=== PATIENT | male | born 1950 | race Caucasian/White ===

== ENCOUNTER 2023-12-19 11:39 | Observation (INO) | payer OTHER ==
[~2023-12-19] VITALS: Ht 180.3 cm; Wt 87.5 kg
[2023-12-19 12:16] LABS: BASOPHILS # (AUTO) 0.09 K/uL (0.00-0.20); BASOPHILS % (AUTO) 1.8 % (0.0-5.0); EOSINOPHILS # (AUTO) 0.09 K/uL (0.00-0.70); EOSINOPHILS % (AUTO) 1.8 % (0.0-8.0); HEMATOCRIT 46.6 % (42-54); IMMATURE GRANULOCYTE ABSOLUTE 0.02 K/uL (0-1); LYMPHOCYTES # (AUTO) 1.9 K/uL (1.0-4.8); MEAN CORPUSCULAR HEMOGLOBIN 34.4 pg (27.0-33.0); MEAN CORPUSCULAR HGB CONC 34.3 g/dL (32.0-36.0); MEAN CORPUSCULAR VOLUME 100.2 fL (79-99); MONOCYTES # (AUTO) 0.5 K/uL (0.1-1.0); MONOCYTES % (AUTO) 10.4 % (3.0-13.0); NEUTROPHILS # (AUTO) 2.4 K/uL (1.8-7.7); NEUTROPHILS % (AUTO) 47.6 % (40.0-77.0); PLATELET COUNT (AUTO) 173 K/uL (130-400); RED BLOOD CELL COUNT(AUTO) 4.65 MIL/uL (4.50-6.20); RED CELL DISTRIBUTION WIDTH 12.2 % (11.0-15.5); WHITE BLOOD COUNT (AUTO) 5.1 K/uL (4.8-10.8)
[2023-12-19 12:24] LABS: CREATININE 1.2 mg/dL (0.5-1.3); INR 1.22 (0.85-1.15)
[2023-12-19 12:25] LABS: PARTIAL THROMBOPLASTIN TIME 36.7 SEC (26.3-35.5)
[2023-12-19] MEDS ORDERED: acetaMINOPHEN 500 MG TABLET PO PRN (14:00)
[2023-12-19] MEDS ORDERED: ONDANSETRON 4MG INJ IVP PRN (14:00)
[2023-12-19 14:58] LABS: HEMOGLOBIN A1C 5.3 % (4.0-6.0)
[2023-12-19 15:11] LABS: ALBUMIN 3.9 g/dL (3.5-5.0); BILIRUBIN,DIRECT 0.1 mg/dL (0.0-0.3); BILIRUBIN,TOTAL 0.5 mg/dL (0.2-1.0); THYROID STIMULATING HORMONE 1.85 uIU/mL (0.36-3.74)
[2023-12-19] MEDS: 0.9%NACL 1000ML 1,000 ML IV SCH (16:13)
[2023-12-19 16:30] LABS: APPEARANCE,URINE CLEAR (CLEAR); BILIRUBIN,URINE NEGATIVE (NEGATIVE); COLOR,URINE LIGHT-YELLOW (YELLOW); GLUCOSE, URINE (UA) NEGATIVE (NEGATIVE); KETONES,URINE NEGATIVE (NEGATIVE); LEUKOCYTE ESTERASE ,URINE NEGATIVE Leu/uL (NEGATIVE); NITRATE,URINE NEGATIVE (NEGATIVE); OCCULT BLOOD,URINE NEGATIVE (NEGATIVE); PH,URINE 6.5 (5.0-8.0); PROTEIN,URINE NEGATIVE (NEGATIVE); UROBILINOGEN,URINE 0.2 mg/dL (0.2-1.0)
[2023-12-19 16:31] LABS: ADD UA MICROSCOPIC YES
[2023-12-19 16:32] LABS: MUCUS,URINE RARE LPF (None Seen); RBC,URINE 0-1 /HPF (0-1); WBC,URINE 0-1 /HPF (0-1)
[2023-12-19 19:30] VITALS: O2SAT 97
[2023-12-19 20:09] VITALS: BP 154/66; PULSE 97; RESP 20; TEMP 98.5
[2023-12-19] MEDS: FAMOTIDINE 20MG TAB PO SCH (20:25)
[2023-12-19] MEDS: RIVAROXABAN 2.5 MG TABLET PO ONE (20:26)
[2023-12-19 23:25] VITALS: BP 145/65; PULSE 46; RESP 20; TEMP 98.2
[2023-12-20] VITALS (10 sets, daily range): BP systolic 121–166; BP diastolic 70–89; PULSE 42–58; RESP 17–21; TEMP 97.8–98.4; O2SAT 98–99
[2023-12-20 04:28] LABS: BASOPHILS # (AUTO) 0.08 K/uL (0.00-0.20); BASOPHILS % (AUTO) 1.3 % (0.0-5.0); EOSINOPHILS # (AUTO) 0.11 K/uL (0.00-0.70); EOSINOPHILS % (AUTO) 1.8 % (0.0-8.0); HEMATOCRIT 41.6 % (42-54); IMMATURE GRANULOCYTE ABSOLUTE 0.01 K/uL (0-1); LYMPHOCYTES # (AUTO) 2.5 K/uL (1.0-4.8); LYMPHOCYTES % (AUTO) 39.6 % (21.0-51.0); MEAN CORPUSCULAR HEMOGLOBIN 34.7 pg (27.0-33.0); MEAN CORPUSCULAR HGB CONC 34.9 g/dL (32.0-36.0); MEAN CORPUSCULAR VOLUME 99.5 fL (79-99); MONOCYTES # (AUTO) 0.7 K/uL (0.1-1.0); MONOCYTES % (AUTO) 10.7 % (3.0-13.0); NEUTROPHILS # (AUTO) 2.9 K/uL (1.8-7.7); NEUTROPHILS % (AUTO) 46.4 % (40.0-77.0); PLATELET COUNT (AUTO) 152 K/uL (130-400); RED BLOOD CELL COUNT(AUTO) 4.18 MIL/uL (4.50-6.20); RED CELL DISTRIBUTION WIDTH 12.2 % (11.0-15.5); WHITE BLOOD COUNT (AUTO) 6.2 K/uL (4.8-10.8)
[2023-12-20 04:50] LABS: ALBUMIN 3.3 g/dL (3.5-5.0); BILIRUBIN,TOTAL 0.6 mg/dL (0.2-1.0); CREATININE 1.2 mg/dL (0.5-1.3); MAGNESIUM 1.7 mg/dL (1.80-2.40); POTASSIUM 4.4 mmol/L (3.5-5.1); TOTAL PROTEIN, SERUM 5.8 g/dL (6.0-8.3)
[2023-12-20] MEDS: MAGNESIUM 2GM PREMIX 50ML 50 ML IV ONE (06:02)
[2023-12-20] MEDS: AMIOdarone 200 MG TABLET PO SCH (09:20)
[2023-12-20] MEDS ORDERED: MAGNESIUM 2GM PREMIX 50ML 50 ML IV SCH (13:30)
[2023-12-20] MEDS: RIVAROXABAN 20 MG TABLET PO SCH (20:00)
[2023-12-20] MEDS: LoSARTan 50 MG TABLET PO SCH (20:00)
[2023-12-21 03:35] VITALS: BP 143/91; PULSE 45; RESP 20; TEMP 97.7
[2023-12-21 04:11] LABS: HEMATOCRIT 44.1 % (42-54); MEAN CORPUSCULAR HEMOGLOBIN 34.5 pg (27.0-33.0); MEAN CORPUSCULAR HGB CONC 35.1 g/dL (32.0-36.0); MEAN CORPUSCULAR VOLUME 98.2 fL (79-99); RED BLOOD CELL COUNT(AUTO) 4.49 MIL/uL (4.50-6.20); RED CELL DISTRIBUTION WIDTH 12.2 % (11.0-15.5); WHITE BLOOD COUNT (AUTO) 5.9 K/uL (4.8-10.8)
[2023-12-21 04:22] LABS: ALBUMIN 3.4 g/dL (3.5-5.0); BILIRUBIN,TOTAL 0.7 mg/dL (0.2-1.0); CREATININE 1.1 mg/dL (0.5-1.3); MAGNESIUM 2.5 mg/dL (1.80-2.40); POTASSIUM 4.1 mmol/L (3.5-5.1); TOTAL PROTEIN, SERUM 6.2 g/dL (6.0-8.3)
[2023-12-21] MEDS: polyETHYLene GLYCol 3350 17 GM POWD.PACK PO SCH (07:02)
[2023-12-21] MEDS: doCUSate SODIUM 100 MG CAP PO SCH (07:03)
[2023-12-21] MEDS: doCUSate SODIUM 100 MG CAP PO ONE (07:03)
[2023-12-21 07:24] VITALS: BP 161/77; PULSE 51; RESP 20; TEMP 98; O2SAT 98
[2023-12-21] MEDS ORDERED: AMIO200T68 PO (10:46)
[2023-12-21] MEDS ORDERED: RIVA20TA PO (10:46)
[2023-12-21] MEDS ORDERED: OLME20TA68 PO (10:46)
[2023-12-21 11:57] VITALS: BP 136/74; PULSE 97; RESP 20; TEMP 98
[2023-12-21] MEDS ORDERED: LoSARTan 50 MG TABLET PO SCH (21:00)
[2023-12-21] MEDS ORDERED: RIVAROXABAN 20 MG TABLET PO SCH (21:00)
== END 2023-12-21 14:20 | disposition home or self-care (01) ==
LOC: EDH 11:39 → INTOOBSV 13:58 → EDHIP 13:58 → 2DH 18:14
PROVIDERS: ADMIT Internal Medicine; ATTEND Internal Medicine
DX: R00.1 Bradycardia, unspecified (principal); R42 Dizziness and giddiness; R20.0 Anesthesia of skin; I10 Essential (primary) hypertension; I48.0 Paroxysmal atrial fibrillation; I63.9 Cerebral infarction, unspecified; I65.21 Occlusion and stenosis of right carotid artery; I44.0 Atrioventricular block, first degree; G51.0 Bell's palsy; R60.0 Localized edema; Z79.899 Other long term (current) drug therapy; Z79.01 Long term (current) use of anticoagulants; Z90.49 Acquired absence of other specified parts of digestive tract
CPT/HCPCS: 96361 ×3; 99285; 83036; 84443; 82550 ×2; 80076; 83735 ×3; 84484; 80061; 80048; 85025 ×2; 85610; 85730; 84439; 84425; 82607; 84481; 82746; 81001; 36415 ×3; 70450; 93880; 70551; 93005; 96365; 96366; 80053 ×2; 97161; 97116; 85027; J7030; G0378 ×23; J3475; G8980-CH; G8983-CH

== ENCOUNTER → 2024-01-14 | Outpatient (CLI) | payer OTHER ==
[~2024-01-14] MED LIST: AMIO200T68 PO; OLME20TA68 PO; RIVA20TA PO
== END | disposition home or self-care (01) ==
LOC: RAH 12:30
PROVIDERS: ATTEND Internal Medicine Cardiovascular Disease
DX: Z13.6 Encounter for screening for cardiovascular disorders (principal)
CPT/HCPCS: 75571

== ENCOUNTER 2024-02-26 08:35 | Observation (INO) | payer OTHER ==
[~2024-02-26] VITALS: Ht 180.3 cm; Wt 87.5 kg
[2024-02-26 09:08] LABS: BASOPHILS # (AUTO) 0.04 K/uL (0.00-0.20); BASOPHILS % (AUTO) 0.9 % (0.0-5.0); EOSINOPHILS # (AUTO) 0.18 K/uL (0.00-0.70); HEMATOCRIT 44.6 % (42-54); IMMATURE GRANULOCYTE ABSOLUTE 0.02 K/uL (0-1); LYMPHOCYTES # (AUTO) 2.1 K/uL (1.0-4.8); LYMPHOCYTES % (AUTO) 46.5 % (21.0-51.0); MEAN CORPUSCULAR HEMOGLOBIN 35.1 pg (27.0-33.0); MEAN CORPUSCULAR VOLUME 100.5 fL (79-99); MONOCYTES # (AUTO) 0.4 K/uL (0.1-1.0); MONOCYTES % (AUTO) 9.5 % (3.0-13.0); NEUTROPHILS # (AUTO) 1.8 K/uL (1.8-7.7); NEUTROPHILS % (AUTO) 38.7 % (40.0-77.0); PLATELET COUNT (AUTO) 122 K/uL (130-400); RED BLOOD CELL COUNT(AUTO) 4.44 MIL/uL (4.50-6.20); RED CELL DISTRIBUTION WIDTH 11.9 % (11.0-15.5); WHITE BLOOD COUNT (AUTO) 4.5 K/uL (4.8-10.8)
[2024-02-26 09:24] LABS: CREATININE 1.1 mg/dL (0.5-1.3); POTASSIUM 4.2 mmol/L (3.5-5.1)
[2024-02-26 09:41] LABS: B-TYPE NATRIURETIC PEPTIDE 64 pg/mL (0-100)
[2024-02-26] MEDS ORDERED: morPHINE 2 MG SYG IVP PRN (10:30)
[2024-02-26] MEDS ORDERED: acetaMINOPHEN 650 MG SUPPOSITORY RC PRN ×2 (10:30→12:30)
[2024-02-26] MEDS ORDERED: acetaMINOPHEN 325 MG TAB PO PRN ×2 (10:30→12:30)
[2024-02-26] MEDS ORDERED: hydrALAZine 20MG/ML VIAL IV PRN (12:30)
[2024-02-26] MEDS ORDERED: LAbetaLOL 20MG SYG IV PRN (12:30)
[2024-02-26] MEDS ORDERED: ondanSETRON 4MG INJ IVP PRN (12:30)
[2024-02-26] MEDS ORDERED: doCUSate SODIUM 100 MG CAP PO PRN (12:30)
[2024-02-26] MEDS ORDERED: ALBUTEROL 0.083% 2.5 MG/3 ML INH IH PRN (12:30)
[2024-02-26] MEDS ORDERED: cloNIDine HCL 0.1 MG TABLET PO PRN (12:30)
[2024-02-26] MEDS ORDERED: LACTULOSE 20 GM/30 ML UDCUP PO PRN (12:30)
[2024-02-26 12:55] VITALS: PULSE 53; RESP 18; O2SAT 99
[2024-02-26 13:10] VITALS: BP 178/66; PULSE 55; RESP 20; TEMP 97.6; O2SAT 98
[2024-02-26] MEDS ORDERED: ATOR20TA PO (14:00)
[2024-02-26 15:38] VITALS: BP 136/72; PULSE 52; RESP 20; TEMP 97.6
[2024-02-26] MEDS: INSULIN humuLIN R 100 UNIT/ML 3ML SQ SCH (16:30)
[2024-02-26 20:00] VITALS: BP 161/89; PULSE 60; RESP 20; TEMP 97.4; O2SAT 98
[2024-02-26] MEDS ORDERED: simVASTatin 20 MG TABLET PO SCH (20:00)
[2024-02-26] MEDS ORDERED: IOHEXOL-350 75 ML VIAL IV ONE (21:59)
[2024-02-26] MEDS: atorVAStatin 10 MG TABLET PO SCH (22:27)
[2024-02-26] MEDS: RIVAROXABAN 20 MG TABLET PO SCH (22:27)
[2024-02-26] MEDS: FAMOTIDINE 20MG TAB PO SCH (22:27)
[2024-02-26] MEDS ORDERED: LOSA50TA64 PO (22:31)
[2024-02-26 23:43] VITALS: BP 156/92; PULSE 55; RESP 20; TEMP 98
[2024-02-27 04:00] VITALS: BP 153/72; PULSE 50; RESP 16; TEMP 98.3
[2024-02-27 06:07] LABS: HEMATOCRIT 44.1 % (42-54); MEAN CORPUSCULAR HEMOGLOBIN 34.5 pg (27.0-33.0); MEAN CORPUSCULAR HGB CONC 34.5 g/dL (32.0-36.0); RED BLOOD CELL COUNT(AUTO) 4.41 MIL/uL (4.50-6.20); RED CELL DISTRIBUTION WIDTH 11.9 % (11.0-15.5); WHITE BLOOD COUNT (AUTO) 4.5 K/uL (4.8-10.8)
[2024-02-27 06:29] VITALS: PULSE 55; RESP 18; O2SAT 97
[2024-02-27 06:31] LABS: CREATININE 1.1 mg/dL (0.5-1.3); MAGNESIUM 2.1 mg/dL (1.80-2.40); PHOSPHORUS 3.6 mg/dL (2.5-4.9); POTASSIUM 4.6 mmol/L (3.5-5.1)
[2024-02-27 08:00] VITALS: BP 142/77; PULSE 51; RESP 18; TEMP 97.9; O2SAT 96
[2024-02-27] MEDS: AMIOdarone 200 MG TABLET PO SCH (08:50)
[2024-02-27] MEDS: ASPIRIN 81MG CHEW TAB PO SCH (08:50)
[2024-02-27] MEDS ORDERED: OLMESARTAN MEDOXOMIL 20 MG PO SCH (09:00)
[2024-02-27] MEDS ORDERED: ENOXAPARIN SODIUM 40 MG/0.4 ML SYRINGE SQ SCH (09:00)
[2024-02-27 12:00] VITALS: BP 144/73; PULSE 54; RESP 18; TEMP 98.3
[2024-02-27] MEDS ORDERED: LoSARTan 50 MG TABLET PO SCH (20:00)
== END 2024-02-27 15:05 | disposition home or self-care (01) ==
LOC: EDH 08:35 → EDHIP 10:03 → 4DH 13:10
PROVIDERS: ADMIT Internal Medicine Critical Care Medicine; ATTEND Internal Medicine Critical Care Medicine
DX: I25.110 Atherosclerotic heart disease of native coronary artery with unstable angina pectoris (principal); I48.91 Unspecified atrial fibrillation; I10 Essential (primary) hypertension; R07.89 Other chest pain; E78.5 Hyperlipidemia, unspecified; Z79.01 Long term (current) use of anticoagulants; Z79.899 Other long term (current) drug therapy; Z98.890 Other specified postprocedural states
CPT/HCPCS: 99285; 82550 ×3; 84484 ×5; 80048 ×2; 83880; 85025; 85378; 82948 ×4; 36415 ×2; 71045; 71275; 93306; 93356; 93005; 94664; 83735; 84100; 85027; G0378 ×28; Q9967

== ENCOUNTER → 2024-03-04 | Outpatient (CLI) | payer OTHER ==
[~2024-03-04] MED LIST changes: +ATOR20TA PO; +LOSA50TA64 PO; -OLME20TA68 PO
[2024-03-04 16:26] LABS: CREATININE 1.2 mg/dL (0.5-1.3); POTASSIUM 4.8 mmol/L (3.5-5.1)
== END | disposition home or self-care (01) ==
LOC: LAB 11:57
PROVIDERS: ATTEND Internal Medicine Cardiovascular Disease
DX: I20.9 Angina pectoris, unspecified (principal)
CPT/HCPCS: 36415; 80048

== ENCOUNTER → 2024-03-06 | Outpatient (CLI) | payer OTHER ==
[~2024-03-06] MED LIST changes: +IOHEXOL 350 MG/ML 100ML INFUS..BTL IV ONE
== END | disposition home or self-care (01) ==
LOC: RAH 08:43
PROVIDERS: ATTEND Internal Medicine Cardiovascular Disease
DX: I20.9 Angina pectoris, unspecified (principal)
CPT/HCPCS: 75574; Q9967

== ENCOUNTER → 2024-03-13 | Outpatient (CLI) | payer OTHER ==
[~2024-03-13] MED LIST changes: -IOHEXOL 350 MG/ML 100ML INFUS..BTL IV ONE
== END | disposition home or self-care (01) ==
LOC: SHCH 08:59
PROVIDERS: ATTEND Internal Medicine Cardiovascular Disease
DX: I71.43 Infrarenal abdominal aortic aneurysm, without rupture (principal)
CPT/HCPCS: 93978

== ENCOUNTER 2024-08-19 05:56 | Day surgery (SDC) | payer OTHER ==
[2024-08-15 09:58] LABS: BASOPHILS # (AUTO) 0.08 K/uL (0.00-0.20); EOSINOPHILS # (AUTO) 0.46 K/uL (0.00-0.70); EOSINOPHILS % (AUTO) 5.9 % (0.0-8.0); HEMATOCRIT 44.6 % (42-54); IMMATURE GRANULOCYTE ABSOLUTE 0.02 K/uL (0-1); LYMPHOCYTES # (AUTO) 2.2 K/uL (1.0-4.8); LYMPHOCYTES % (AUTO) 28.7 % (21.0-51.0); MEAN CORPUSCULAR HGB CONC 34.1 g/dL (32.0-36.0); MEAN CORPUSCULAR VOLUME 102.8 fL (79-99); MONOCYTES # (AUTO) 0.8 K/uL (0.1-1.0); MONOCYTES % (AUTO) 9.8 % (3.0-13.0); NEUTROPHILS # (AUTO) 4.2 K/uL (1.8-7.7); NEUTROPHILS % (AUTO) 54.3 % (40.0-77.0); PLATELET COUNT (AUTO) 149 K/uL (130-400); RED BLOOD CELL COUNT(AUTO) 4.34 MIL/uL (4.50-6.20); RED CELL DISTRIBUTION WIDTH 12.1 % (11.0-15.5); WHITE BLOOD COUNT (AUTO) 7.8 K/uL (4.8-10.8)
[2024-08-15 10:01] LABS: CREATININE 1.1 mg/dL (0.5-1.3); POTASSIUM 4.9 mmol/L (3.5-5.1)
[2024-08-15 10:04] LABS: INR 1.12 (0.85-1.15); PROTHROMBIN TIME 11.7 SEC (9.6-11.6)
[2024-08-15 10:06] LABS: PARTIAL THROMBOPLASTIN TIME 34.2 SEC (26.3-35.5)
--- NOTE | 2024-08-15 11:03 | EKG ---
[facility] Test Date: 2024-08-15 Test Time: 09:46:05 Pat Name: ALICIA GARCIA Department: [facility] Room: Gender: M [employer]: [id number] : 1950 Requested By: MARSHALL BOYLE Order Number: [id number] Reading MD: Jose Loving Measurements Intervals [place] Rate: 56 P: -70 NM: 218 QRS: 43 QRSD: 99 T: 0 QT: 451 QTc: 436 Interpretive Statements Sinus or ectopic atrial rhythm Supraventricular bigeminy Borderline prolonged NM interval Compared to ECG 04/11/2024 12:22:35 Ectopic atrial rhythm now present Atrial premature complex(es) now present Atrial fibrillation no longer present Electronically Signed On 08-15-2024 14:39:13 CDT by Jose Loving Please click the below link to view image of tracing.
[2024-08-18 10:10] VITALS: BP 143/72; PULSE 58; RESP 18; TEMP 97.1
[2024-08-19] VITALS (18 sets, daily range): BP systolic 119–151; BP diastolic 65–88; PULSE 46–57; RESP 11–18; TEMP 97.3–97.8
[~2024-08-19] VITALS: Ht 177.8 cm; Wt 88.5 kg
[~2024-08-19 05:56] MED LIST changes: -AMIO200T68 PO; +APIX5TAB PO; +ASPI-1443 PO; -RIVA20TA PO; +SOTA80TA PO
[2024-08-19] MEDS ORDERED: HEParin 1,000 UNIT VIAL ONE ×2 (07:27→07:51)
[2024-08-19] MEDS ORDERED: HEParin 10,000 UNIT/10ML (1,000 UNIT/ML) VIAL ONE (07:27)
[2024-08-19] MEDS ORDERED: BUPIvacaine/PF 0.25% 30ML VIAL IJ ONE (07:27)
[2024-08-19] MEDS ORDERED: LIDOCAINE HCL 1% MDV 50ML VIAL ONE (07:27)
[2024-08-19] MEDS ORDERED: HEParin-NS 1,000 UNIT/500 ML 1,000 ML IV ONE (07:28)
[2024-08-19] MEDS ORDERED: FENTanyl CITRate PF 50 MCG/1 ML 2ML VIAL ONE ×2 (07:56→09:05)
[2024-08-19] MEDS ORDERED: MIDAZOLAM HCL 1 MG/ML 2ML VIAL ONE ×3 (07:56→09:06)
[2024-08-19] MEDS ORDERED: ISOPROTERENOL HCL 0.2 MG/ML AMP/VIAL/BAG ONE (08:35)
[2024-08-19] MEDS ORDERED: DiphenhydrAMINE HCL 50 MG/ML VIAL ONE (09:11)
[2024-08-19] MEDS ORDERED: proPOFol 10 MG/ML 20ML VIAL IV ONE (09:50)
[2024-08-19] MEDS ORDERED: proPOFol 1000 MG/100 ML 100 ML IV ONE (09:50)
[2024-08-19] MEDS ORDERED: LIDOCAINE PF 100MG/5ML (2%) SYRINGE 5ML ONE (09:51)
[2024-08-19 14:09] LABS: MAGNESIUM 2.1 mg/dL (1.80-2.40); POTASSIUM 4.1 mmol/L (3.5-5.1)
== END 2024-08-19 14:25 | disposition home or self-care (01) ==
LOC: DAH 05:56
PROVIDERS: ATTEND Internal Medicine Cardiovascular Disease
DX: I48.3 Typical atrial flutter (principal); I10 Essential (primary) hypertension; E78.5 Hyperlipidemia, unspecified; I25.10 Atherosclerotic heart disease of native coronary artery without angina pectoris; Z79.82 Long term (current) use of aspirin; Z88.1 Allergy status to other antibiotic agents; Z88.5 Allergy status to narcotic agent; Z79.01 Long term (current) use of anticoagulants; Z79.899 Other long term (current) drug therapy
CPT/HCPCS: 80048 ×2; 85025; 85610; 85730; 36415 ×2; 93005; 93653; 83735; C1894 ×2; C1732 ×2; C1893; A4649 ×2; C1760 ×2; J1200; J3010 ×2; J2003; J2250 ×3; J2704 ×2; J1644 ×3; J3490; A4215; A4222; A4221; A4663; A4216; A4606; A4223 ×3; 99156; 99157; J0665

== ENCOUNTER 2024-12-15 05:56 | Emergency (ER) | payer OTHER ==
[~2024-12-15] VITALS: Ht 180.3 cm; Wt 86.2 kg
--- NOTE | 2024-12-15 05:57 | ERN ---
General Stated Complaint: CHEST TIGHTNESS ONSET YESTERDAY Time Seen by MD: 05:56 Source: patient History of Present Illness Initial Comments 74-year-old male with a history of hypertension hypercholesterolemia and atrial fibrillation. He experienced atrial fibrillation for the last 18 hours associated with jaw pain and left chest pain and he comes in for evaluation as he was also hypertensive up to 190 systolic. backup sawyer gave him one tablet of nitroglycerin in his blood pressure dropped from a systolic of 168 down to 117. Currently the patient has no complaints of jaw pain chest pain and his cardiac rhythm is normal sinus. Allergies: Coded Allergies: codeine (Unverified Allergy, Unknown, 08/18/24) tetracycline (Unverified Allergy, Unknown, 08/18/24) Home Meds Reported Medications Apixaban (Eliquis) 5 Mg Tablet, 5 MG PO BID, TAB 08/18/24 Losartan Potassium (Losartan Potassium) 50 Mg Tablet, 50 MG PO PM, TAB 08/18/24 Sotalol HCl (Sotalol) 80 Mg Tablet, 80 MG PO BID, TAB 08/18/24 Aspirin (Aspirin EC) 81 Mg Tablet.dr, 81 MG PO DAILY, TAB 04/14/24 Atorvastatin Calcium (Lipitor) 20 Mg Tablet, 20 MG PO HS, TAB 02/26/24 Past Medical History Past Medical History: A-Fib, High Cholesterol, Hypertension Constitutional: (-) chills, (-) diaphoresis, (-) fever, (-) malaise, (-) weakness, (-) other documentation EENTM: (-) eye pain, (-) blurred vision, (-) tearing, (-) double vision, (-) ear pain, (-) ear discharge, (-) nose pain, (-) nose congestion, (-) throat pain, (-) Throat swelling, (-) mouth pain, (-) tooth pain, (-) mouth swelling, (-) other documentation Respiratory: (-) cough, (-) orthopnea, (-) short of breath, (-) stridor, (-) wheezing, (-) other documentation Cardiovascular: (+) chest pain, (+) palpitations Gastrointestinal/Abdominal: (-) nausea, (-) vomiting, (-) diarrhea, (-) abdominal pain, (-) abdominal distention, (-) constipation, (-) rectal bleeding, (-) dark stool/melena, (-) other documentation Genitourinary: (-) penile discharge, (-) dysuria, (-) frequency, (-) hematuria, (-) pain, (-) other documentation Musculoskeletal: (-) Neck pain, (-) back pain, (-) Flank Pain, (-) joint pain, (-) joint swelling, (-) muscle pain, (-) muscle stiffness, (-) gout, (-) other documentation Physical Exam General Appearance: (+) no apparent distress Orientation: (+) alert, (+) oriented x 3 Head/Face Trauma: No Eye: bilateral eye normal inspection, bilateral eye PERRL, bilateral eye EOMI Ear, Nose, Throat: (+) hearing grossly normal, (+) normal ENT inspection, (+) moist mucous membraine Neck: (+) normal inspection, (+) supple, (+) full range of motion Respiratory: (+) chest non-tender, (+) lungs clear, (+) well ventilated Heart: (+) regular, (+) no gallop Vascular: (+) no edema, (+) normal peripheral pulse Gastrointestinal: (+) soft, (+) non-tender, (+) bowel sound present Results Laboratory and Microbiology Lab and Micro Result Laboratory Tests Test 12/15/24 06:18 White Blood Count 7.7 K/uL (4.8-10.8) Red Blood Count 4.37 MIL/uL (4.50-6.20) L Hemoglobin 15.1 g/dL (14.0-18.0) Hematocrit 43.1 % (42-54) Mean Corpuscular Volume 98.6 fL (79-99) Mean Corpuscular Hemoglobin 34.6 pg (27.0-33.0) H Mean Corpuscular Hemoglobin Concent 35.0 g/dL (32.0-36.0) Red Cell Distribution Width 11.8 % (11.0-15.5) Platelet Count 164 K/uL (130-400) Mean Platelet Volume 9.7 fL (7.5-10.5) Immature Granulocyte % (Auto) 0.4 % (0-1) Neutrophils (%) (Auto) 51.5 % (40.0-77.0) Lymphocytes (%) (Auto) 33.7 % (21.0-51.0) Monocytes (%) (Auto) 9.1 % (3.0-13.0) Eosinophils (%) (Auto) 3.7 % (0.0-8.0) Basophils (%) (Auto) 1.6 % (0.0-5.0) Neutrophils # (Auto) 4.0 K/uL (1.8-7.7) Lymphocytes # (Auto) 2.6 K/uL (1.0-4.8) Monocytes # (Auto) 0.7 K/uL (0.1-1.0) Eosinophils # (Auto) 0.28 K/uL (0.00-0.70) Basophils # (Auto) 0.12 K/uL (0.00-0.20) Absolute Immature Granulocyte (auto 0.03 K/uL (0-1) Nucleated Red Blood Cells 0.0 % (0.0-0.19) Sodium Level 140 mmol/L (136-145) Potassium Level 4.3 mmol/L (3.5-5.1) Chloride Level 105 mmol/L (101-111) Carbon Dioxide Level 31 mmol/L (21-32) Blood Urea Nitrogen 10 mg/dL (7-18) Creatinine 1.1 mg/dL (0.5-1.3) Glomerular Filtration Rate Calc 70 mL/min (>90) Random Glucose 96 mg/dL (70-105) Total Calcium 8.7 mg/dL (8.5-10.1) Total Creatine Kinase 45 U/L (21-232) # Troponin I High Sensitivity 13 ng/L (4-75) B-Type Natriuretic Peptide 40 pg/mL (0-100) MDM MDM: Differential diagnosis: Recurrent atrial fibrillation, acute NE, dehydration, anxiety, pneumonia, fluid overload, occult infection. Rationale: Tests considered and ordered secondary to shared decision making include: Previous outside records reviewed: Old ER visits. Risk of complication and/or morbidity or mortality of patient management: None Medications-Per medication reconciliation Need for hospitalization: Patient does meet criteria for hospitalization. Need for emergency major/minor surgery: No There are no social concerns with this patient. Prescription drug management Prescriptions will include symptomatic care Patient's prior external medical records from other ER visits were reviewed by me as indicated. Prior testing and results from previous visits were reviewed. Prior tests were taken into account with medical decision making and resource utilization, independent historian/historians were used to obtain complete medical history. I independently interpreted the test that were performed, results were reviewed by me and considered findings on radiology if ordered. Patient's laboratory studies are normal. CBC normal. Chemistry panel normal with a normal troponin and a normal beta and P. EKG normal as well with a sinus rhythm versus ectopic atrial rhythm. Chest x-ray also normal. I will discharge the patient home. ED Course Orders Procedure Category Date Status Time 12 Lead Ekg Tracing- EKG 12/15/24 Logged Technical 06:02 Creatine Kinase, Total LAB 12/15/24 Complete 06:02 Troponin I High LAB 12/15/24 Complete Sensitivity 06:02 Cbc With Differential LAB 12/15/24 Complete 06:02 Basic Metabolic Panel LAB 12/15/24 Complete 06:02 Chest 1vw RAD 12/15/24 Resulted 06:02 B-Type Natriuretic LAB 12/15/24 Complete Peptide 06:02 Urinalysis Profile LAB 12/15/24 In Process 06:02 Vital Signs Date Time Temp Pulse Resp B/P (MAP) Pulse Ox O2 Delivery O2 Flow Rate FiO2 12/15/24 06:55 50 16 124/66 98 Room Air* 0 21 12/15/24 06:10 98.4 53 17 116/64 96 Room Air* 0 21 12/15/24 05:57 97.7 56 16 117/70 98 Room Air 0 DX & DISP Disposition: Discharge Departure Impression: Primary Impression: History of coronary artery disease Additional Impression: Transient atrial fibrillation Condition: Stable Additional Instructions: Your laboratory studies are all normal you have no signs of cardiac ischemia your chest x-ray is normal your EKGs normal as well I will discharge you home. Please return to the emergency room if you have a repeat of the symptoms. NIDIA GALVAN MD Dec 15, 2024 05:57
[2024-12-15 06:26] LABS: IMMATURE GRANULOCYTE ABSOLUTE 0.03 K/uL (0-1); NUCLEATED RED BLOOD CELLS 0.0 % (0.0-0.19); PLATELET COUNT (AUTO) 164 K/uL (130-400); RED BLOOD CELL COUNT(AUTO) 4.37 MIL/uL (4.50-6.20); RED CELL DISTRIBUTION WIDTH 11.8 % (11.0-15.5); WHITE BLOOD COUNT (AUTO) 7.7 K/uL (4.8-10.8)
[2024-12-15 06:42] LABS: CREATINE KINASE, TOTAL 45.0 U/L (21-232); CREATININE 1.1 mg/dL (0.5-1.3); GLOMERULAR FILTR. RATE CALC 70.0 mL/min (>90); GLUCOSE,RANDOM 96.0 mg/dL (70-105); SODIUM SERUM 140.0 mmol/L (136-145); UREA NITROGEN, BLOOD 10.0 mg/dL (7-18)
--- NOTE | 2024-12-15 06:54 | HMCIMG ---
EXAM: CR Chest, 1 View. CLINICAL HISTORY: a-fib COMPARISON: 04/11/2024 FINDINGS: LUNGS: The lungs show no infiltrate or other acute finding. PLEURAL SPACES: No pleural effusion or pneumothorax. MEDIASTINUM: Cardiac size and mediastinal contours within normal limits. BONES: No acute osseous abnormality. IMPRESSION: No acute cardiopulmonary pathology is evident. /[place]
--- NOTE | 2024-12-15 07:05 | NUR ---
REPORT GIVEN TO RODERICK LERMA AT THIS TIME
[2024-12-15 07:16] LABS: ADD UA MICROSCOPIC NO; APPEARANCE,URINE CLEAR (CLEAR); GLUCOSE, URINE (UA) NEGATIVE (NEGATIVE); LEUKOCYTE ESTERASE ,URINE NEGATIVE Leu/uL (NEGATIVE); NITRATE,URINE NEGATIVE (NEGATIVE); OCCULT BLOOD,URINE NEGATIVE (NEGATIVE)
[2024-12-15 07:20] VITALS: BP 124/66; PULSE 55; RESP 17; TEMP 98.5; O2SAT 98
--- NOTE | 2024-12-15 07:21 | EKG ---
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
== END 2024-12-15 08:00 | disposition home or self-care (01) ==
LOC: EDBD 05:56 → EDH 05:56
DX: I25.10 Atherosclerotic heart disease of native coronary artery without angina pectoris (principal); I48.91 Unspecified atrial fibrillation; E78.00 Pure hypercholesterolemia, unspecified; I10 Essential (primary) hypertension; Z79.01 Long term (current) use of anticoagulants; Z79.82 Long term (current) use of aspirin; Z79.899 Other long term (current) drug therapy; Z88.1 Allergy status to other antibiotic agents; Z88.5 Allergy status to narcotic agent
CPT/HCPCS: 36415; 71045; 80048; 81003; 82550; 83880; 84484; 85025; 93005; 99285